=== PATIENT | female | born 1955 ===

== ENCOUNTER 2020-08-03 12:13 | Emergency (ER) | payer OTHER ==
[~2020-08-03] VITALS: Ht 154.9 cm; Wt 72.6 kg
[2020-08-03] MEDS ORDERED: ZESTRIL20 MG (12:29)
== END 2020-08-03 15:23 | disposition home or self-care (01) ==
LOC: ER 12:13
DX: S40.012A Contusion of left shoulder, initial encounter (principal); S00.532A Contusion of oral cavity, initial encounter; M54.2 Cervicalgia; W18.09XA Striking against other object with subsequent fall, initial encounter; Y93.89 Activity, other specified; Y92.481 Parking lot as the place of occurrence of the external cause; Y99.8 Other external cause status